=== PATIENT | male | born 1975 | race Hispanic/Latino ===

== ENCOUNTER 2019-02-21 08:27 | Emergency (ER) | payer SELFPAY ==
[2019-02-21 08:45] VITALS: BP 128/84
--- NOTE | 2019-02-21 09:18 | XRay Report ---
ROUTINE CHEST, TWO VIEWS: HISTORY: Cough, chest pain. The trachea, heart, mediastinal contour, lung olmos and bony thorax are unremarkable. IMPRESSION: Unremarkable chest x-ray.
--- NOTE | 2019-02-21 10:33 | Emergency Department Report ---
Minor Respiratory - HPI Chief Complaint: Chest Pain Stated Complaint: CHEST PAIN/COUGHING Time Seen by Provider: 02/21/19 10:24 Duration: 2 Days Severity: moderate Minor Respiratory: Yes Able to Tolerate Fluids, Yes Cough (productive of clear sputum), Yes Chest Pain (with cough), Yes Shortness of Breath, No Rhinorrhea, No Sore Throat, No Ear Pain, No Sick Contacts, No Hemoptysis, No Fever Other History: Patient is a heavy smoker smoking a pack and a half of cigarettes for several years. He smoked since he was age 14. Patient states occasionally he will have cough and congestion however last night he was coughing so much that it made him feel like he wanted to vomit. ED Review of Systems ROS: Stated complaint: CHEST PAIN/COUGHING Other details as noted in HPI Comment: All other systems reviewed and negative ED Past Medical Hx - Social History Smoking Status: Current Every Day Smoker Substance Use Type: None - Medications Home Medications: Home Medications Medication Instructions Recorded Confirmed Last Taken Type ALBUTEROL Inhaler(NF) [VENTOLIN 2 puff IH Q4HRT #1 inha 02/21/19 Unknown Rx Inhaler(NF)] Benzonatate [Tessalon Perles] 100 mg PO Q8HR #10 capsule 02/21/19 Unknown Rx predniSONE [Deltasone] 20 mg PO QDAY #5 tab 02/21/19 Unknown Rx Minor Respiratory Exam - Exam General: Vital signs noted. No distress. Alert and acting appropriately. HEENT: Yes Moist Mucous Membranes, No Pharyngeal Erythema, No Pharyngeal Exudates, No Rhinorrhea, No Conjuctival Injection, No Frontal Tenderness, No Maxillary Tenderness Ear: Neither TM Bulge, Neither TM Erythema, Neither EAC Pain, Neither EAC Discharge Neck: Yes Supple, No Adenopathy Lungs: Yes Good Air Exchange, Yes Cough, No Wheezes, No Ronchi, No Stridor, No Labored Respirations, No Retractions, No Use of Accessory Muscles, No Other Abnormal Lung Sounds Heart: Yes Regular, No Murmur Abdomen: Yes Normal Bowel Sounds, No Tenderness, No Peritoneal Signs Skin: No Rash, No Edema Neurologic: Alert and oriented, no deficits. Musculoskeletal: Unremarkable. ED Course Vital Signs 02/21/19 08:43 Temperature 97.8 F Pulse Rate 98 H Respiratory 18 Rate Blood Pressure 128/84 O2 Sat by Pulse 96 Oximetry ED Medical Decision Making - Radiology Data [facility] [address] [place] [address] XRay Report Signed Patient: ABIDA PRYOR MR#: [id number] : 1975 Acct:[id number] Age/Sex: 43 / M ADM Date: 02/21/19 Loc: ED Attending Dr: Ordering Physician: MARIANNA CARLSON MD Date of Service: 02/21/19 Procedure(s): XR chest routine 2V Accession Number(s): [id number] cc: ED MD ROBYN Fluoro Time In Minutes: ROUTINE CHEST, TWO VIEWS: HISTORY: Cough, chest pain. The trachea, heart, mediastinal contour, lung olmos and bony thorax are unremarkable. IMPRESSION: Unremarkable chest x-ray. Transcribed By: TTR Dictated By: CK OSBORN JR, MD Electronically Authenticated By: CK OSBORN JR, MD Signed Date/Time: 02/21/19913 DD/ 3 TD/TT: 02/21/19 Per my interpretation of the patient's chest x-ray he does have significant air trapping. - Medical Decision Making Patient with very early COPD type changes to his chest x-ray. The patient likely with acute on chronic bronchitis. Patient be referred to pulmonology and patient be given meds for symptomatically relief. Did have a extensive conversation about smoke cessation with the patient. Critical care attestation.: If time is entered above; I have spent that time in minutes in the direct care of this critically ill patient, excluding procedure time. ED Disposition Clinical Impression: Acute bronchitis with chronic obstructive pulmonary disease (COPD), Smoking greater than 20 pack years Disposition: TO HOME OR SELFCARE Is pt being admited?: No Does the pt Need Aspirin: No Condition: Stable Instructions: Acute Bronchitis (ED), Chronic Obstructive Pulmonary Disease (ED), How to Stop Smoking (ED) Referrals: STEVE NIEVES MD [Primary Care Provider] - 3-5 Days LIBBY VALIENTE MD [Staff Physician] - 3-5 Days Time of Disposition: 10:33
== END 2019-02-21 10:48 | disposition home or self-care (01) ==
LOC: ED 08:27
DX: J44.0 Chronic obstructive pulmonary disease with (acute) lower respiratory infection (principal); F17.210 Nicotine dependence, cigarettes, uncomplicated
CPT/HCPCS: 71046; 93005; 93010